=== PATIENT | female | born 1965 | race Caucasian/White ===

== ENCOUNTER 2022-08-21 14:04 | Day surgery (SDC) | payer BC ==
[2022-08-21] MEDS ORDERED: Depo-Medrol 40 MG/ML IM ONE (14:05)
[2022-08-21] MEDS ORDERED: BUPIVACAINE 0.5% VIAL IJ ONE (14:05)
[2022-08-21] MEDS ORDERED: DIPRIVAN 200 MG/20 ML IV ONE (16:45)
[2022-08-21] MEDS ORDERED: Lactated Ringers 1,000 ML IV ONE (17:07)
--- NOTE | 2022-08-21 20:55 | XRAY ---
Indication: Left knee injection. Intraoperative fluoroscopy provided for 4 seconds. Single digital spot image submitted for interpretation demonstrates needle tip projecting over the left femur intercondylar notch. Small amount of contrast injected for needle tip placement. Correlate with intraoperative findings/report.
--- NOTE | 2022-08-22 08:35 | XRAY ---
4 seconds of fluoroscopy was used in surgery for a left knee intra-articular injection.
== END 2022-08-21 17:10 | disposition home or self-care (01) ==
LOC: SDC-PAIN 14:04
PROVIDERS: ATTEND Psychiatry & Neurology Pain Medicine
DX: M17.12 Unilateral primary osteoarthritis, left knee (principal); Z79.899 Other long term (current) drug therapy
CPT/HCPCS: 20610; 73560; 77002; J1030; J2704; Q9966

== ENCOUNTER 2023-06-05 10:42 | Day surgery (SDC) | payer BC ==
[2023-06-05] MEDS ORDERED: Sodium Chloride 0.9(Preservative Free) 10 ML IJ ONE (10:43)
[2023-06-05] MEDS ORDERED: Depo-Medrol 40 MG/ML IM ONE (10:43)
[2023-06-05] MEDS ORDERED: DIPRIVAN 200 MG/20 ML IV ONE ×2 (12:44→13:03)
[2023-06-05] MEDS ORDERED: Lactated Ringers 1,000 ML IV ONE (14:28)
--- NOTE | 2023-06-05 16:27 | XRAY ---
Indication: Left L4-S1 transforaminal RONALD. Intraoperative fluoroscopy provided for 32 seconds. 7 digital spot image submitted for interpretation demonstrates posterior needle tips projecting over the expected left L4 and L5 nerve roots. Small amount of contrast injected for needle tip placement. Correlate with intraoperative findings/report.
--- NOTE | 2023-06-05 16:37 | XRAY ---
32 seconds of fluoroscopy was used in surgery for a left L4-S1 transforaminal RONALD.
== END 2023-06-05 13:30 | disposition home or self-care (01) ==
LOC: SDC-PAIN 10:42
PROVIDERS: ATTEND Psychiatry & Neurology Pain Medicine
DX: M54.16 Radiculopathy, lumbar region (principal)
CPT/HCPCS: 64483; 64484; 72100; 77002; J1030; J2704; Q9966

== ENCOUNTER 2023-10-15 11:28 | Day surgery (SDC) | payer BC ==
[2023-10-15] MEDS ORDERED: Depo-Medrol 40 MG/ML IM ONE (11:29)
[2023-10-15] MEDS ORDERED: LIDOCAINE HCL 2% 100 MG/5 ML IJ ONE (11:29)
[2023-10-15] MEDS ORDERED: DIPRIVAN 200 MG/20 ML IV ONE ×2 (13:05→13:14)
[2023-10-15] MEDS ORDERED: Lactated Ringers 1,000 ML IV ONE (13:53)
--- NOTE | 2023-10-15 14:04 | XRAY ---
Indication: Bilateral L4-S1 MBB. Intraoperative fluoroscopy provided for 13 seconds. Single digital spot image submitted for interpretation demonstrates posterior needle tips projecting over the expected left and right L4-S1 nerve roots. Correlate with intraoperative findings/report. Incidental incompletely visualized right SI joint fusion hardware
--- NOTE | 2023-10-15 15:13 | XRAY ---
13 seconds of fluoroscopy was used ins surgery for a bilateral L4-S1 MBB.
== END 2023-10-15 13:40 | disposition home or self-care (01) ==
LOC: SDC-PAIN 11:28
PROVIDERS: ATTEND Psychiatry & Neurology Pain Medicine
DX: M47.816 Spondylosis without myelopathy or radiculopathy, lumbar region (principal)
CPT/HCPCS: 64493; 64494; 72020; 77002; J1030; J2704